=== PATIENT | female | born 1970 | race Caucasian/White ===

== ENCOUNTER 2017-12-11 18:51 | Emergency (ER) | payer SELFPAY ==
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
--- NOTE | 2017-12-12 08:32 | Diagnostic Imaging Report ---
Sacrum and coccyx 3 views Indication: pain Comparison: none Findings: There is slight irregularity of the coccyx. The SI joints demonstrate mild degenerative changes. Impression: Slight irregularity of the coccyx which may be congenital due to old trauma. Acute nondisplaced fracture cannot be excluded. Please correlate with clinical findings. In the setting of trauma, if clinical symptoms persist and there is continued concern for an occult fracture, follow up exams in 5-7 days is suggested.
== END 2017-12-11 21:34 | disposition home or self-care (01) ==
LOC: ER 18:51
DX: S30.0XXA Contusion of lower back and pelvis, initial encounter (principal); Z88.2 Allergy status to sulfonamides; Z88.1 Allergy status to other antibiotic agents; Z98.890 Other specified postprocedural states; W17.89XA Other fall from one level to another, initial encounter; Y93.39 Activity, other involving climbing, rappelling and jumping off; Y92.89 Other specified places as the place of occurrence of the external cause; Y99.8 Other external cause status
CPT/HCPCS: 99285; 96372; 72220; 81025; J1885